=== PATIENT | female | born 1965 | race Two or more races ===

== ENCOUNTER → 2025-07-18 | Emergency (ER) | payer OTHER ==
[~2025-07-18] VITALS: Ht 162.6 cm; Wt 56.7 kg
[~2025-07-18] MED LIST: HYDR-3976 PO; KETO10TA2 PO; KETOROLAC TROMETHAMINE INJ 30 MG/ML VIAL ONE
[2025-07-18 04:07] LABS: PLATELET COUNT (AUTO) 136 K/uL (150-450); RED BLOOD CELL COUNT(AUTO) 4.07 MIL/uL (4.0-5.2); RED CELL DISTRIBUTION WIDTH 13.6 % (11.5-15.0); WHITE BLOOD COUNT (AUTO) 4.4 K/uL (4.3-11.0)
[2025-07-18 04:11] LABS: ERYTHROCYTE SEDIMENTATION RATE 4 MM/HR (0-30)
[2025-07-18 04:15] LABS: CALCIUM, SERUM 10.6 mg/dL (8.5-10.1); CREATININE 0.8 mg/dL (0.6-1.3); SODIUM SERUM 143.0 mmol/L (136-145); UREA NITROGEN, BLOOD 14.0 mg/dL (7-18)
[2025-07-18] MEDS: KETOROLAC TROMETHAMINE INJ 30 MG/ML VIAL IM ONE (04:18)
[2025-07-18 04:21] LABS: ASPARTATE AMINOTRANSFERASE 13.0 U/L (15-37); TOTAL PROTEIN, SERUM 6.5 g/dL (6.4-8.2)
[2025-07-18 05:51] VITALS: BP 110/62; TEMP 98; O2SAT 97
== END | disposition home or self-care (01) ==
LOC: ER 03:01
DX: M25.562 Pain in left knee (principal)
CPT/HCPCS: 99284; 96372; 73564; 85025; 85652; 84550; 36415; 80053; J1885